=== PATIENT | female | born 1995 | race Caucasian/White ===

== ENCOUNTER → 2020-07-23 | Outpatient (CLI) | payer OTHER ==
[~2020-07-23] MED LIST: KEFLEX500 MG PO; SINGULAIR10 MG PO; ZANTAC150 MG PO
== END ==
LOC: LAB 01:28
DX: R52 Pain, unspecified (principal); R50.9 Fever, unspecified; Z20.822 Contact with and (suspected) exposure to COVID-19
CPT/HCPCS: U0002

== ENCOUNTER → 2020-07-26 | Outpatient (CLI) | payer OTHER ==
[2020-07-26 21:25] LABS: HEMOGLOBIN 13.4 gm/dl (12.3-15.3); RED BLOOD COUNT 4.5 M/UL (4.00-5.10); WHITE BLOOD COUNT 12.3 K/UL (4.5-11.0)
[2020-07-26 21:42] LABS: BUN/CREATININE RATIO 12 (0-10)
== END ==
LOC: LAB 21:02
PROVIDERS: Physician Assistant
DX: R50.9 Fever, unspecified (principal)
CPT/HCPCS: 80053; 85025; 86140; 86403

== ENCOUNTER → 2020-09-20 | Outpatient (CLI) | payer OTHER | LOC: HEART CORB 09:26 | DX: R07.89 Other chest pain (principal); R00.2 Palpitations; R00.0 Tachycardia, unspecified; I07.1 Rheumatic tricuspid insufficiency | CPT/HCPCS: 93306 ==

== ENCOUNTER → 2021-06-22 | Outpatient (CLI) | payer OTHER | LOC: LAB 14:44 | DX: Z32.00 Encounter for pregnancy test, result unknown (principal) | CPT/HCPCS: 36415; 84702 ==

== ENCOUNTER → 2021-07-18 | Day surgery (SDC) | payer OTHER ==
[~2021-07-18] MED LIST changes: +HYDROCODONE-AC1 EACH PO; +IBUPROFEN600 MG PO; +TRANDATE 100 M100 MG PO
[2021-07-18 08:10] LABS: HEMOGLOBIN 11.9 gm/dl (12.3-15.3); RED BLOOD COUNT 4.11 M/UL (4.00-5.10); WHITE BLOOD COUNT 9.2 K/UL (4.5-11.0)
== END | disposition home or self-care (01) ==
LOC: OR 05:56
PROVIDERS: Obstetrics & Gynecology
DX: O02.1 Missed abortion (principal); I10 Essential (primary) hypertension; D64.9 Anemia, unspecified; J45.909 Unspecified asthma, uncomplicated; E66.01 Morbid (severe) obesity due to excess calories; F17.210 Nicotine dependence, cigarettes, uncomplicated; Z20.822 Contact with and (suspected) exposure to COVID-19; Z79.899 Other long term (current) drug therapy
CPT/HCPCS: 36415; 81001; 85025; J1100; J1170; J2210; J2250; J2405; J2704; J3010; J7030; J7120; U0002